=== PATIENT | male | born 1950 | race Caucasian/White ===

== ENCOUNTER 2020-10-09 11:09 | Day surgery (SDC) | payer BC, OTHER, SELFPAY ==
[~2020-10-09] VITALS: Ht 177.8 cm; Wt 81.6 kg
[2020-10-09] VITALS (11 sets, daily range): BP systolic 138–152; BP diastolic 74–93
== END 2020-10-09 20:35 | disposition home or self-care (01) ==
LOC: DS 11:09 → OR 13:30 → DS 20:35
PROVIDERS: ATTEND Internal Medicine Geriatric Medicine
DX: I25.10 Atherosclerotic heart disease of native coronary artery without angina pectoris (principal); R07.9 Chest pain, unspecified
CPT/HCPCS: CLHCL; 93571; C1725; C1760; C1769; C1876; C1887; C1894; J1644; J2001; J2250; J3010; J3490; J7040; Q9967